=== PATIENT | female | born 1970 | race Caucasian/White ===

== ENCOUNTER 2018-06-15 13:11 | Emergency (ER) | payer SELFPAY ==
[2018-06-15 13:50] VITALS: BP 154/79
--- NOTE | 2018-06-15 16:16 | Emergency Department Report ---
ED General Adult HPI - General Chief complaint: Skin/Abscess/Foreign Body Stated complaint: HEADACHE Source: patient Mode of arrival: Ambulatory Limitations: No Limitations - History of Present Illness Initial comments: This is a 47-year-old female who presents with right sided headache for 5 days. Patient patient was seen by primary care provider on Sunday and diagnosed with folliculitis started on cefalexin and Motrin. Patient states redness and swelling to the right side of scalp improved but pain continues to increase. Patient reports pain as a pulling and tugging sensation to the right side of head. Pain lasts for several hours and is 10 out of 10 on pain scale. Patient states after taking Motrin symptoms are resolved for 4 hours and then returns. Patient denies nausea or vomiting visual changes, congestion, rhinorrhea, chest pain, or fever. Onset/Timin -: days(s) Location: head (right-sided headache) Radiation: non-radiation Severity scale (0 -10): 10 Quality: aching, other (pulling and tugging sensation) Consistency: intermittent Improves with: medication Worsens with: other (light) Associated Symptoms: denies other symptoms Treatments Prior to Arrival: NSAID - Related Data Previous Rx's Medication Instructions Recorded Last Taken Type Butalb/Acetamin/Caff 50-325-40 1 each PO Q4H PRN #8 tablet 06/15/18 Unknown Rx [Fioricet] Allergies Allergy/AdvReac Type Severity Reaction Status Date / Time No Known Allergies Allergy Unverified 06/15/18 13:46 ED Review of Systems ROS: Stated complaint: HEADACHE Other details as noted in HPI Constitutional: denies: chills, fever Eyes: denies: eye pain, eye discharge, vision change ENT: denies: ear pain, throat pain, congestion Respiratory: denies: cough, shortness of breath, wheezing Cardiovascular: denies: chest pain, palpitations Gastrointestinal: denies: abdominal pain, nausea, diarrhea Neurological: headache. denies: weakness, paresthesias Psychiatric: denies: anxiety, depression ED Past Medical Hx - Past Medical History Previous Medical History?: No - Surgical History Past Surgical History?: Yes Additional Surgical History: tubal ligation - Social History Smoking Status: Never Smoker Substance Use Type: None - Medications Home Medications: Home Medications Medication Instructions Recorded Confirmed Last Taken Type Butalb/Acetamin/Caff 50-325-40 1 each PO Q4H PRN #8 tablet 06/15/18 Unknown Rx [Fioricet] ED Physical Exam - General Limitations: No Limitations General appearance: alert, in no apparent distress - Head Head exam: Present: atraumatic, normocephalic - Eye Eye exam: Present: normal appearance - ENT ENT exam: Present: mucous membranes moist - Neck Neck exam: Present: normal inspection - Respiratory Respiratory exam: Present: normal lung sounds bilaterally. Absent: respiratory distress - Cardiovascular Cardiovascular Exam: Present: regular rate, normal rhythm. Absent: systolic murmur, diastolic murmur, rubs, gallop - GI/Abdominal GI/Abdominal exam: Present: soft, normal bowel sounds - Neurological Exam Neurological exam: Present: alert, oriented X3 - Psychiatric Psychiatric exam: Present: normal affect, normal mood - Skin Skin exam: Present: warm, dry, intact, normal color. Absent: rash ED Course Vital Signs 06/15/18 13:46 Temperature 98.8 F Pulse Rate 76 Respiratory 18 Rate Blood Pressure 154/79 O2 Sat by Pulse 97 Oximetry ED Medical Decision Making - Radiology Data Radiology results: report reviewed CT of head/brain wo con Impression: No evidence of an acute intracranial process, intracranial hemorrhage or mass effect. - Medical Decision Making This is a 47 y.o. female that presents with right-sided headache for 5 days. Patient is stable and was examined by me. Patient is currently taking an cephalexin and ibuprofen for folliculitis diagnosed by PCP on Sunday. CT of head obtained and dictated by radiologist. CT report reviewed by myself with no acute findings. Patient given Toradol 30 mg IM and Zofran 4 mg ODT once while in ER. Start Fioricet for headache. No further questions noted by the patient. Discharged home in stable condition. Follow up with PCP in 24-72 hours. Critical care attestation.: If time is entered above; I have spent that time in minutes in the direct care of this critically ill patient, excluding procedure time. ED Disposition Clinical Impression: Right-sided headache Migraine Qualifiers: Migraine type: without aura Status migrainosus presence: with status migrainosus Intractability: not intractable Qualified Code(s): G43.001 - Migraine without aura, not intractable, with status migrainosus Disposition: TO HOME OR SELFCARE Is pt being admited?: No Does the pt Need Aspirin: No Condition: Stable Instructions: Migraine Headache (ED) Additional Instructions: Take medication at start of headache. Moderate caffeine intake. Eat at scheduled times or 3 meals a day with snacks. Follow up with primary care provider in 24-72 hours. Prescriptions: Butalb/Acetamin/Caff 50-325-40 [Fioricet] 1 each PO Q4H PRN #8 tablet PRN Reason: Headache Referrals: [facility] [Outside] - 3-5 Days [facility] [Outside] - 3-5 Days [facility] [Outside] - 3-5 Days Time of Disposition: 17:12 Print Language: KHMER
--- NOTE | 2018-06-15 16:50 | Cat Scan Report ---
FINAL REPORT EXAM: CT HEAD/BRAIN WO CON HISTORY: headache TECHNIQUE: 2.5 millimeter axial images from the skullbase to the vertex. Comparison: None FINDINGS: There is no evidence of an acute intracranial process, intracranial hemorrhage or mass effect. The ventricles are normal size. The visualized portions of the orbits, paranasal and mastoid sinuses are unremarkable. The bony structures are unremarkable in appearance. There is a mildly prominent nodular density, probable lymph node, in the anterior aspect of the right parotid gland measures approximately 9 millimeters in size. IMPRESSION: 1. No evidence of an acute intracranial process, intracranial hemorrhage or mass effect.
[2018-06-15] MEDS ORDERED: TORADOL IM ONE (17:08)
[2018-06-15] MEDS ORDERED: ZOFRAN ODT PO ONE (17:08)
== END 2018-06-15 17:58 | disposition home or self-care (01) ==
LOC: ED 13:11
DX: G43.001 Migraine without aura, not intractable, with status migrainosus (principal); Z98.51 Tubal ligation status
CPT/HCPCS: 70450; 96372; 99283; J1885; Q0162